=== PATIENT | female | born 2000 ===

== ENCOUNTER 2023-09-20 22:19 | Emergency (ER) | payer OTHER, SELFPAY ==
[2023-09-20 22:35] VITALS: BP 101/55; PULSE 86; RESP 16; TEMP 36.8; O2SAT 97; BMI 21.0
[2023-09-21] VITALS: BP 101/57; PULSE 80; RESP 16; TEMP 37.1; O2SAT 98
--- NOTE | 2023-09-21 01:03 | ED.GENADULT ---
HPI - General Adult General Chief complaint: Back Pain/Injury Stated complaint: lower back pain Time Seen by Provider: 09/21/23 00:10 Source: patient, RN notes reviewed and old records reviewed Mode of arrival: ambulatory Limitations: no limitations History of Present Illness HPI narrative: 22-year-old female presents for evaluation of lower abdominal pain and flank pain. Patient reports her symptoms started 2 weeks ago She complains of vaginal pressure when urinating but denies significant burning with urination Patient reports that she is sexually active with a new sexual partner and denies using barrier protection Denies any fevers or chills, nausea vomiting, diarrhea She endorses some abnormal vaginal discharge that she describes as reddish in color Related Data Allergies Allergy/AdvReac Type Severity Reaction Status Date / Time No Known Allergies Allergy Verified 09/21/23 00:44 Review of Systems Constitutional: Constitutional: Reports body ache(s), Denies chills and Denies fever(s) Cardiovascular: Cardiovascular: Denies chest pain and Denies dyspnea Respiratory: Respiratory: Denies cough and Denies dyspnea Gastrointestinal: Gastrointestinal: Reports abdominal pain, Denies nausea and Denies vomiting Genitourinary: Genitourinary: Denies dysuria, Reports pelvic pain and Reports vaginal discharge PMFSH Social History Social History Advance Directives: No Advance Directives Information Provided: No Physical Exam ED Vital Signs: Vital Signs - 24 hr 09/20/23 22:35 09/21/23 00:00 Temperature 98.2 F 98.8 F Pulse Rate 86 80 Respiratory Rate 16 16 Blood Pressure 101/55 L 101/57 L Pulse Oximetry 97 98 Oxygen Delivery Method Room Air Room Air BMI result Body Mass Index 21.0 Const General: healthy appearing, comfortable, no acute distress, alert and awake Nutritional Appearance: well nourished Orientation/consciousness: patient oriented x3 HENMT Head: Yes normocephalic and Yes atraumatic Eyes Eyelids: Yes eyelids normal Conjunctivae: conjunctivae normal Sclerae: sclerae normal Corneas: corneas normal Pupils: Equal, round and reactive pupils present EOM: EOMs intact bilaterally Neck Neck: Yes full ROM Resp Effort & Inspection: normal respiratory effort, able to speak in complete sentences and not labored GI Inspection: No distended Palpation (GI): Soft to palpation, not firm, Tenderness to palpation present (GI) in the LLQ, in the RLQ and suprapubicly; not in the LUQ and not in the RUQ, no guarding and not rigid Auscultation: normoactive bowel sounds General: Yes CVA tenderness (Bilaterally) Back/Spine/Pelvis Back: CVA tenderness (Bilaterally) Skin General skin exam: elasticity normal Neuro General: patient oriented x3 Cranial nerves: Yes Equal, round and reactive pupils present and Yes Bilaterally intact EOM present Cognition (Neuro): normal cognition Extrem Other: Moving all extremities well without any obvious deformities Medical Decision Making Medical Decision Making MDM Narrative: 22 old female presents for evaluation of flank pain, urine discomfort. Plan for UA, test, gonorrhea, chlamydia. Differential Diagnosis Differential Diagnoses: The differential diagnosis associated with the presentation includes UTI Pyelonephritis Obstructive uropathy Lab Data Labs: Lab Results 09/21/23 Range/Units 01:09 Urine Color Yellow Urine Appearance Clear Urine pH 6.0 (5.0-9.0) Ur Specific [place] 1.020 (1.005-1.025) Urine Protein Negative (Neg-Trace) mg/dL Urine Glucose (UA) Negative (Negative) mg/dL Urine Ketones Negative (Negative) mg/dL Urine Blood Negative (Negative) Urine Nitrite Negative (Negative) Ur Leukocyte Esterase Trace H (Negative) Urine RBC 0-2 (0-2) /HPF Urine WBC 6-10 (0-5) /HPF Ur Squamous Epith Cells 6-10 (0-2) /HPF Urine Bacteria Trace (None Seen) Hyaline Casts 0-2 (0-2) /LPF Urine Test NEGATIVE (NEGATIVE) Discharge Plan Discharge Clinical Impression: Acute flank pain Patient Disposition: Home, Self-Care Instructions: Flank Pain (ED) Additional Instructions: Your urine sample was negative for , did not show any signs of infection or blood to suggest kidney stone. We will call you if the culture results in anything positive Use Motrin/Tylenol for any further pain you may follow-up with the primary doctor
[2023-09-21 01:18] LABS: Appearance Urine Clear; Color Urine Yellow; Glucose Urine UA Negative (Negative); Leukocyte Esterase Urine Trace (Negative); Nitrite Urine Negative (Negative); UMIC TRIGGER UACC YES; Urine Blood Negative (Negative); Urine Ketones Negative (Negative); Urine Protein Negative (Neg-Trace)
[2023-09-21 01:19] LABS: UPreg QC Valid YES; Urine Pregnancy NEGATIVE (NEGATIVE)
[2023-09-21 01:30] LABS: Bacteria Urine Trace (None Seen); Hyaline Casts Urine 0-2 /LPF (0-2); UACC Culture Trigger YES
[2023-09-21 01:31] LABS: RBC Urine 0-2 /HPF (0-2)
[2023-09-21 02:00] VITALS: BP 105/60; PULSE 77; RESP 16; TEMP 36.7; O2SAT 98
== END 2023-09-21 02:18 | disposition home or self-care (01) ==
PROVIDERS: Physician Assistant; Emergency Provider Internal Medicine
DX: R10.9 Unspecified abdominal pain (principal); M54.50 Low back pain, unspecified
CPT/HCPCS: 81001; 81025; 87086; 87088; 87186; 99283